=== PATIENT | female | born 1980 | race Caucasian/White ===

== ENCOUNTER → 2023-10-07 11:10 | Outpatient (REF) | payer BC, SELFPAY | LOC: HWRAD 11:10 | PROVIDERS: ATTENDING PHYSICIAN Internal Medicine Endocrinology, Diabetes & Metabolism; FAMILY PHYSICIAN Physician Assistant Medical | DX: C73 Malignant neoplasm of thyroid gland (principal) | CPT/HCPCS: 76536 ==

== ENCOUNTER → 2023-10-11 | Outpatient (REF) | payer BC, SELFPAY | LOC: DHSLP | PROVIDERS: ATTENDING PHYSICIAN Internal Medicine; FAMILY PHYSICIAN Physician Assistant Medical | DX: G47.33 Obstructive sleep apnea (adult) (pediatric) (principal) | CPT/HCPCS: 95800 ==

== ENCOUNTER → 2024-07-13 10:09 | Outpatient (REF) | payer BC, SELFPAY | LOC: HWRAD 10:09 | PROVIDERS: ATTENDING PHYSICIAN Physician Assistant Medical | DX: R07.9 Chest pain, unspecified (principal); R20.2 Paresthesia of skin | CPT/HCPCS: 93880 ==

== ENCOUNTER → 2024-09-14 11:05 | Outpatient (REF) | payer BC, SELFPAY | LOC: HWRCS 11:05 | PROVIDERS: ATTENDING PHYSICIAN Internal Medicine Cardiovascular Disease; FAMILY PHYSICIAN Physician Assistant Medical | DX: R07.89 Other chest pain (principal); R00.2 Palpitations | CPT/HCPCS: 93306 ==

== ENCOUNTER → 2024-09-17 10:38 | Outpatient (REF) | payer BC, SELFPAY | LOC: RCS 10:38 | PROVIDERS: ATTENDING PHYSICIAN Internal Medicine Cardiovascular Disease; FAMILY PHYSICIAN Physician Assistant Medical | DX: R07.89 Other chest pain (principal); R00.2 Palpitations | CPT/HCPCS: 93017; 93350 ==